=== PATIENT | male | born 1995 | race African-American/Black ===

== ENCOUNTER 2018-01-18 02:59 | Emergency (ER) | payer SELFPAY ==
[~2018-01-18] VITALS: Ht 182.9 cm; Wt 93.0 kg
[2018-01-18] MEDS ORDERED: TETRACAINE 0.5% OPHTH SOLUTION 4ML BOTTLE. ONE (03:19)
[2018-01-18] MEDS ORDERED: FLUORESCEIN 1MG EYE STRIP. OS ONE (03:45)
[2018-01-18] MEDS ORDERED: TETRACAINE 0.5% OPHTH SOLUTION 4ML BOTTLE. OS ONE (03:45)
[2018-01-18] MEDS ORDERED: PROPARACAINE 0.5% OPHTH SOLUTION 15ML BOTTLE. OS ONE (03:45)
[2018-01-18] MEDS ORDERED: ERYTHROMYCIN 0.5% OPHTH OINTMENT 1GM TUBE. OS STA (03:45)
[2018-01-18 03:50] VITALS: BP 133/60
[2018-01-18] MEDS ORDERED: ERYT1OIN6 OS (03:56)
--- NOTE | 2018-01-18 03:56 | PHYS DOC ---
Past History Past Medical History: No Pertinent History Past Surgical History: No Surgical History Alcohol Use: None Drug Use: None Adult General Chief Complaint Chief Complaint: FOREIGN BODY/EYES HPI HPI Patient is a 22 year old male who presents with complaint of possible foreign body in the left eye. The patient states that he may have gotten glass from his cell phone screen in his eye after the cell phone screen had broken. The patient thinks that he may have accidentally rubbed broken glass into his eye. Patient states that he is having 9 out of 10 pain to the eye and has noticed redness develop since earlier this evening. Patient denies any. Drainage and denies any other injuries. The patient has not used any medications or attempted to wash his eye since this started. Patient denies any loss of vision. Review of Systems Review of Systems Constitutional: Denies fever or chills [] Eyes: Redness and eye pain in left eye[] HENT: Denies nasal congestion or sore throat [] Respiratory: Denies cough or shortness of breath [] Cardiovascular: Denies chest pain or edema[] GI: Denies abdominal pain, nausea, vomiting, bloody stools or diarrhea [] : Denies dysuria or hematuria [] Musculoskeletal: Denies back pain or joint pain [] Integument: Denies rash or skin lesions [] Neurologic: Denies headache, focal weakness or sensory changes [] All other systems were reviewed and found to be within normal limits, except as documented in this note. Current Medications Current Medications Current Medications Medications (Trade) Dose Ordered Sig/Rosenda Start Time Stop Time Status Last Admin Dose Admin Fluorescein Sodium (Ful-Jenn 1mg) 1 strip 1X ONCE 01/18/18 03:30 01/18/18 03:31 UNV Proparacaine HCl (Opthetic) 1 drop 1X ONCE 01/18/18 03:30 01/18/18 03:31 UNV Tetracaine HCl (Tetracaine) 1 drop 1X ONCE 01/18/18 03:30 01/18/18 03:31 UNV Allergies Allergies Allergies Coded Allergies Type Severity Reaction Last Updated Verified No Known Drug Allergies 01/18/18 No Physical Exam Physical Exam Constitutional: Alert, afebrile, appears in moderate discomfort. [] HENT: Normocephalic, atraumatic, bilateral external ears normal, oropharynx moist, no oral exudates, nose normal. [] Eyes: PERRLA, EOMI, left scleral injection, left conjunctiva inflamed, no visualized foreign body with lid eversion, no evidence of corneal abrasion on wood's lamp examination with fluoroscein stain, slit lamp examination shows no foreign body. [] Neck: Normal range of motion, no tenderness, supple, no stridor. [] Cardiovascular:Heart rate regular rhythm, no murmur [] Lungs & Thorax: Bilateral breath sounds clear to auscultation [] Abdomen: Bowel sounds normal, soft, no tenderness, no masses, no pulsatile masses. [] Skin: Warm, dry, no erythema, no rash. [] Back: No tenderness, no CVA tenderness. [] Extremities: No tenderness, no cyanosis, no clubbing, ROM intact, no edema. [] Neurologic: Alert and oriented X 3, normal motor function, normal sensory function, no focal deficits noted. [] Current Patient Data Vital Signs Vital Signs Date Time Temp Pulse Resp B/P (MAP) Pulse Ox O2 Delivery O2 Flow Rate FiO2 01/18/18 03:00 98.1 59 14 100 Room Air Lab Results Not performed EKG EKG Not performed[] Radiology/Procedures Radiology/Procedures Not performed[] Course & Med Decision Making Course & Med Decision Making Pertinent Labs and Imaging studies reviewed. (See chart for details) Examination shows no evidence of corneal abrasion. The patient likely has episcleritis due to possible chemical irritation to the left eye. Patient was prescribed Romycin for continued treatment with recommended follow-up with Dr. Bowens of ophthalmology in the next 1-2 days. Advised return emergency department for any worsening symptoms. Patient voiced understanding and in agreement with treatment plan. Dragon Disclaimer Dragon Disclaimer This electronic medical record was generated, in whole or in part, using a voice recognition dictation system. Departure Departure: Impression: Primary Impression: Episcleritis of left eye Disposition: 01 HOME, SELF-CARE Condition: STABLE Referrals: JUSTA BOWENS DO Patient Instructions: Eye - Scleritis and Episcleritis Additional Instructions: Follow-up with Dr. Bowens in one to 2 days for reevaluation. Return to the emergency department for any worsening symptoms. Scripts Erythromycin Base (Erythromycin) 1 Gm Oint...g. 0.5 INCH OS TID for 5 Days, #1 TUBE Prov: SHEELA KUMARI MD 01/18/18 SHEELA KUMARI MD January 18, 2018 03:56
== END 2018-01-18 04:00 | disposition home or self-care (01) ==
LOC: ER 02:59
DX: H15.102 Unspecified episcleritis, left eye (principal)
CPT/HCPCS: 99284

== ENCOUNTER 2019-06-21 19:01 | Emergency (ER) | payer SELFPAY ==
[~2019-06-21] VITALS: Ht 182.9 cm; Wt 117.9 kg
[~2019-06-21 19:01] MED LIST: ERYT1OIN6 OS
[2019-06-21 19:51] LABS: BASO # 0.1 x10^3/uL (0.0-0.2); BASO % 1 % (0-3); EOS # 0.1 x10^3/uL (0.0-0.7); EOS % 1 % (0-3); HEMOGLOBIN 14.6 g/dL (13.0-17.5); LYMPH # 2.5 x10^3/uL (1.0-4.8); LYMPH % 29 % (24-48); MEAN CORPUSCULAR HEMOGLOBIN 32 pg (25-35); MEAN CORPUSCULAR HGB CONC 35 g/dL (31-37); MEAN CORPUSCULAR VOLUME 92 fL (79-100); MONO # 0.7 x10^3/uL (0.0-1.1); MONO % 9 % (0-9); NEUT # 5.1 x10^3uL (1.8-7.7); NEUT % 60 % (31-73); PLATELET COUNT 216 x10^3/uL (140-400); RED BLOOD COUNT 4.55 x10^6/uL (4.30-5.70); RED CELL DISTRIBUTION WIDTH 12.9 % (11.5-14.5); WHITE BLOOD COUNT 8.5 x10^3/uL (4.0-11.0)
[2019-06-21 19:56] LABS: BARBITURATES NEG (NEG); BENZODIAZEPINES NEG (NEG); CANNABINOIDS POS (NEG); COCAINE NEG (NEG); METHADONE NEG (NEG); OPIATES NEG (NEG); PHENCYCLIDINE NEG (NEG)
[2019-06-21 19:57] LABS: GFR 113.1; POTASSIUM 3.9 mmol/L (3.5-5.1)
[2019-06-21 20:00] LABS: AMPHETAMINE/METHAMPHETAMINE NEG (NEG)
[2019-06-21 20:01] LABS: CALCIUM 8.6 mg/dL (8.5-10.1)
--- NOTE | 2019-06-21 20:04 | RAD ---
Exam: CT head INDICATION: Altered mental status TECHNIQUE: Sequential axial images through the head were obtained without the administration of IV contrast. Comparisons: None FINDINGS: No focal parenchymal lesion or hemorrhage is identified. There is no midline shift or sulcal effacement. No acute vascular territory infarction is identified. Harmon-white distinction is preserved. The ventricular system is within normal limits without compression hydrocephalus. The basal cisterns are well maintained. The visualized portions of the paranasal sinuses and mastoid air cells are well-pneumatized. No acute fractures. IMPRESSION: No acute intracranial abnormality. Exposure: One or more of the following in the visualized dose reduction techniques were utilized for this examination: 1. Automated exposure control 2. Adjustment of the MA and/or KV according to patient size Use of iterative of reconstructive technique Electronically signed by: Leticia Gallagher MD (06/21/2019 8:01 PM) [facility]
[2019-06-21] MEDS ORDERED: IV NORMAL SALINE 1,000ML 1,000 ML IV ONE (20:45)
[2019-06-21 21:58] VITALS: BP 135/63
--- NOTE | 2019-06-21 23:35 | RAD ---
AP chest radiograph 06/21/2019 Clinical History: Congestion. An AP digital radiograph of the chest was obtained. No previous studies are available for comparison. The cardiac and mediastinal silhouettes are within normal limits in size and configuration. No acute pulmonary infiltrate is seen. No pleural effusion or pneumothorax is noted. The osseous structures are grossly intact. IMPRESSION: No acute abnormality is seen. Electronically signed by: Zoran Garcia MD (06/21/2019 11:32 PM) [facility]
--- NOTE | 2019-06-24 04:04 | EKG ---
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
--- NOTE | 2019-07-10 16:33 | ED.ADGEN ---
Past History Past Medical History: Other Past Surgical History: No Surgical History Alcohol Use: None Drug Use: None Adult General Chief Complaint Chief Complaint Chest pain/dizziness HPI HPI Patient is a 23-year-old -[place] male presents with dizziness and lightheadedness with palpitations and chest pain starting 2 hours prior to ED arrival. Patient states she was standing at time symptoms began. Denies headache, change of vision, fast or irregular heart rate. No nausea vomiting or sweats. No abdominal pain. No back pain or shortness of breath. No leg pain or swelling. No other acute symptoms or complaints. Denies alcohol and drug use[] Review of Systems Review of Systems Review symptoms as per history of present illness. All other review symptoms are negative. All other systems were reviewed and found to be within normal limits, except as documented in this note. Current Medications Current Medications Current Medications Medications (Trade) Dose Ordered Sig/Rosenda Start Time Stop Time Status Last Admin Dose Admin Sodium Chloride 1,000 ml @ 1,000 mls/hr 1X ONCE 06/21/19 20:45 06/21/19 21:44 DC 06/21/19 20:45 1,000 MLS/HR Allergies Allergies Allergies Coded Allergies Type Severity Reaction Last Updated Verified No Known Drug Allergies 01/18/18 No Physical Exam Physical Exam Constitutional: Well developed, well nourished, no acute distress, non-toxic ap pearance. [] HENT: Normocephalic, atraumatic, bilateral external ears normal, oropharynx moist, no oral exudates, nose normal. [] Eyes: PERRLA, EOMI, conjunctiva injected.[] Neck: Normal range of motion, no tenderness, supple, no stridor. [] Cardiovascular:Heart rate regular rhythm, no murmur [] Lungs & Thorax: Bilateral breath sounds clear to auscultation [] Abdomen: Bowel sounds normal, soft, no tenderness, no masses, no pulsatile masses. [] Skin: Warm, dry, no erythema, no rash. [] Back: No tenderness, no CVA tenderness. [] Extremities: No tenderness, no cyanosis, no clubbing, ROM intact, no edema. [] Neurologic: Alert and oriented X 3, normal motor function, normal sensory function, no focal deficits noted. [] Psychologic: Affect normal, judgement normal, mood normal. [] Current Patient Data Vital Signs Vital Signs Date Time Temp Pulse Resp B/P (MAP) Pulse Ox O2 Delivery O2 Flow Rate FiO2 06/21/19 21:58 77 16 135/63 (87) 97 Room Air 06/21/19 19:45 98.1 Lab Results Laboratory Tests Test 06/21/19 19:15 06/21/19 19:21 06/21/19 19:25 Urine Opiates Screen Neg (NEG) Urine Methadone Screen Neg (NEG) Urine Barbiturates Neg (NEG) Urine Phencyclidine Screen Neg (NEG) Urine Amphetamine/Methamphetamine Neg (NEG) Urine Benzodiazepines Screen Neg (NEG) Urine Cocaine Screen Neg (NEG) Urine Cannabinoids Screen Pos (NEG) Urine Ethyl Alcohol Neg (NEG) Glucose (Fingerstick) 124 mg/dL (70-99) H White Blood Count 8.5 x10^3/uL (4.0-11.0) Red Blood Count 4.55 x10^6/uL (4.30-5.70) Hemoglobin 14.6 g/dL (13.0-17.5) Hematocrit 42.0 % (39.0-53.0) Mean Corpuscular Volume 92 fL (79-100) Mean Corpuscular Hemoglobin 32 pg (25-35) Mean Corpuscular Hemoglobin Concent 35 g/dL (31-37) Red Cell Distribution Width 12.9 % (11.5-14.5) Platelet Count 216 x10^3/uL (140-400) Neutrophils (%) (Auto) 60 % (31-73) Lymphocytes (%) (Auto) 29 % (24-48) Monocytes (%) (Auto) 9 % (0-9) Eosinophils (%) (Auto) 1 % (0-3) Basophils (%) (Auto) 1 % (0-3) Neutrophils # (Auto) 5.1 x10^3uL (1.8-7.7) Lymphocytes # (Auto) 2.5 x10^3/uL (1.0-4.8) Monocytes # (Auto) 0.7 x10^3/uL (0.0-1.1) Eosinophils # (Auto) 0.1 x10^3/uL (0.0-0.7) Basophils # (Auto) 0.1 x10^3/uL (0.0-0.2) Sodium Level 140 mmol/L (136-145) Potassium Level 3.9 mmol/L (3.5-5.1) Chloride Level 106 mmol/L (98-107) Carbon Dioxide Level 27 mmol/L (21-32) Anion Gap 7 (6-14) Blood Urea Nitrogen 17 mg/dL (8-26) Creatinine 1.0 mg/dL (0.7-1.3) Estimated GFR (Cockcroft-Gault) 113.1 Glucose Level 128 mg/dL (70-99) H Calcium Level 8.6 mg/dL (8.5-10.1) Prolactin 7.7 ng/mL (4.0-15.2) EKG EKG [EKG: Reviewed] Radiology/Procedures Radiology/Procedures [] Course & Med Decision Making Course & Med Decision Making Pertinent Labs and Imaging studies reviewed. (See chart for details) [Symptoms resolved in the ED. Lab, EKG reviewed. Suspect symptoms related to marijuana use. Recommendations are for future drug avoidance and PCP follow-up.] Final Impression Final Impression [#1 Dizziness #2 THC use] Nicole Disclaimer Dragon Disclaimer This electronic medical record was generated, in whole or in part, using a voice recognition dictation system. TIFFANY RAY DO Jul 10, 2019 16:33
== END 2019-06-21 21:58 | disposition home or self-care (01) ==
LOC: ER 19:01
DX: R42 Dizziness and giddiness (principal); F12.90 Cannabis use, unspecified, uncomplicated
CPT/HCPCS: 36415; 70450; 71045; 80048; 80307; 82947; 84146; 85025; 93005; 96360; 99285-25; J7030

== ENCOUNTER 2019-10-01 09:18 | Emergency (ER) | payer SELFPAY ==
[~2019-10-01] VITALS: Ht 182.9 cm; Wt 125.0 kg
[2019-10-01] MEDS ORDERED: LIDOCAINE 1%/EPI 1:100,000 20 ML VIAL. ONE (09:32)
--- NOTE | 2019-10-01 09:37 | PHYS DOC ---
Past History Past Medical History: Other Additional Past Medical Histor: PTSD Past Surgical History: No Surgical History Alcohol Use: None Drug Use: None Adult General Chief Complaint Chief Complaint: LACERATION/AVULSION HPI HPI Patient is a 23-year-old male presents to the emergency department for evaluation. This morning he awakened to use the restroom and , while walking barefoot, accidentally stepped on the corner of a ventilation tense on his bathroom floor, and sustained a laceration on the plantar surface of his left foot. Palpation of the affected area is painful, he denies a sensation of foreign body. He is uncertain of his last tetanus. He denies any other injuries, numbness, or weakness. Review of Systems Review of Systems Constitutional: Denies fever or chills [] Integument: Denies rash or skin lesions [] Neurologic: Denies focal weakness or sensory changes [] Allergies Allergies Allergies Coded Allergies Type Severity Reaction Last Updated Verified No Known Drug Allergies 01/18/18 No Physical Exam Physical Exam PHYSICAL EXAM: HEENT: Atruamatic NECK: Supple, normal ROM, non-tender. CARDIAC: Regular Rate and Rhythm LUNGS: Clear Bilaterally EXTREMITIES: There is a V-shaped 4 cm laceration on the plantar surface of the left foot, laterally, and on the distal aspect of the plantar surface of the foot. There is no foreign body, or significant surrounding warmth or erythema. EKG EKG [] Radiology/Procedures Radiology/Procedures [] Course & Med Decision Making Course & Med Decision Making LACERATION REPAIR PROCEDURE NOTE: The 4 centimeter laceration was irrigated copiously with normal saline, anesthetized with 1% lidocaine with epinephrine, prepped with Betadine, and draped with sterile drapes. Sterile technique was used. The wound was closed with # 6 running interlocking 4-0 nylon sutures. Good epithelial approximation was obtained. The patient tolerated the procedure well. Discussed wound care with the patient, the need for follow-up, and return precautions. Dragon Disclaimer Dragon Disclaimer This electronic medical record was generated, in whole or in part, using a voice recognition dictation system. Departure Departure: Impression: Primary Impression: Foot laceration Disposition: HOME, SELF-CARE Condition: STABLE Patient Instructions: Laceration Care, Adult Additional Instructions: Keep wound clean and dry. Sutures should be removed in 7-10 days. Please contact your primary care provider or return to the emergency department for suture removal. Apply topical anabiotic ointment and a fresh sterile dressing at least once daily, and if wound becomes dirty or wet. JENNIFER HERNANDEZ MD Oct 01, 2019 09:37
[2019-10-01] MEDS ORDERED: DIPHTH,PERTUSS(ACELL),TET TOX 0.5 ML DISP.SYRIN. VAX IM ONE (10:00)
[2019-10-01] MEDS ORDERED: NEOMY/BACITR/POLYMYXIN OINT PACKET. TP ONE (10:01)
[2019-10-01] MEDS ORDERED: BACITRACIN ZINC TOPICAL OINT PACKET. TP ONE (10:15)
== END 2019-10-01 10:07 | disposition home or self-care (01) ==
LOC: ER 09:18
DX: S91.312A Laceration without foreign body, left foot, initial encounter (principal); F43.10 Post-traumatic stress disorder, unspecified; W01.0XXA Fall on same level from slipping, tripping and stumbling without subsequent striking against object, initial encounter; Y93.89 Activity, other specified; Y92.002 Bathroom of unspecified non-institutional (private) residence as the place of occurrence of the external cause; Y99.8 Other external cause status
CPT/HCPCS: 12002; 90471; 90715; 99283

== ENCOUNTER 2019-10-11 10:54 | Emergency (ER) | payer SELFPAY ==
[~2019-10-11] VITALS: Ht 182.9 cm; Wt 125.0 kg
[2019-10-11 11:04] VITALS: BP 129/65
--- NOTE | 2019-10-11 12:02 | PHYS DOC ---
Past History Past Medical History: Other Additional Past Medical Histor: PTSD Past Surgical History: No Surgical History Alcohol Use: None Drug Use: None Adult General Chief Complaint Chief Complaint: SUTURE/STAPLE REMOVAL HPI HPI Patient is a 21-year-old male with suture removal. No issues Allergies Allergies Allergies Coded Allergies Type Severity Reaction Last Updated Verified No Known Drug Allergies 01/18/18 No Physical Exam Physical Exam Constitutional: Well developed, well nourished, no acute distress, non-toxic appearance. [] Skin: Warm, dry, no erythema, no rash. [] Well-healed 3 cm laceration sutures in place at the base of the bottom of the l affected foot. I did take these sutures out myself there was good skin approximation no signs of infection patient tolerated well. Neurologic: Alert and oriented X 3, Psychologic: Affect normal, judgement normal, mood normal. [] Current Patient Data Vital Signs Vital Signs Date Time Temp Pulse Resp B/P (MAP) Pulse Ox O2 Delivery O2 Flow Rate FiO2 10/11/19 11:04 98.1 85 16 129/65 (86) 96 Room Air EKG EKG [] Radiology/Procedures Radiology/Procedures [] Course & Med Decision Making Course & Med Decision Making Pertinent Labs and Imaging studies reviewed. (See chart for details) [] Dragon Disclaimer Dragon Disclaimer This electronic medical record was generated, in whole or in part, using a voice recognition dictation system. Departure Departure: Impression: Primary Impression: Visit for suture removal Disposition: HOME, SELF-CARE Condition: STABLE Patient Instructions: Suture Removal-Brief MARIANELA MARES MD Oct 11, 2019 12:02
== END 2019-10-11 11:18 | disposition home or self-care (01) ==
LOC: ER 10:54
DX: S91.312D Laceration without foreign body, left foot, subsequent encounter (principal); X58.XXXD Exposure to other specified factors, subsequent encounter
CPT/HCPCS: 99281

== ENCOUNTER 2020-01-21 21:36 | Emergency (ER) | payer SELFPAY ==
[~2020-01-21] VITALS: Ht 182.9 cm; Wt 125.0 kg
--- NOTE | 2020-01-21 21:42 | PHYS DOC ---
Past History Past Medical History: Other Additional Past Medical Histor: PTSD Past Surgical History: No Surgical History Alcohol Use: None Drug Use: None General Adult HPI: HPI: "...I got ALL the symptoms of COVID.. ". " It is all over ." " I got the cough..." ..".. My nose is running all the time.. the last coupled days..." Patient is a 24 year old MALE inmate from [facility] who presents with above hx and complaints of COVID.. Pt. complaints of non-cough, congestion, rhinorrhea, fever, malaise, arthralgia, myalgia and malaise. Patient did not get flu vaccination this season. No recent travel. No specific ill contacts. Did have travel to [place] in July. Patient does smoke. Has used marijuana in the past. Patient denies any history of chronic medical issues. Up-to-date with vaccinations since high school. No history immunosuppression. No history of IV drug use. No history of coagulopathy of him or family members. Review of Systems: Review of Systems: Constitutional: Subjective complaints of fever or chills Eyes: Denies change in visual acuity HENT: Complains of nasal congestion, rhinorrhea and sore throat Respiratory: Complains of a nonproductive cough Cardiovascular: Denies chest pain or edema GI: Denies abdominal pain, nausea, vomiting, bloody stools or diarrhea : Denies dysuria Musculoskeletal: Denies back pain or joint pain Integument: Denies rash Neurologic: Denies headache, focal weakness or sensory changes Endocrine: Denies polyuria or polydipsia Lymphatic: Denies swollen glands Psychiatric: Denies depression or anxiety Heart Score: HEART Score for Chest Pain: HEART Score for Chest Pain Response (Comments) Value History Slighlty/Non-Suspicious 0 ECG Normal 0 Age < 45 0 Risk Factors No Risk Factors 0 Troponin < Normal Limit 0 Total 0 Risk Factors: Risk Factors: DM, Current or recent (<one month) smoker, HTN, HLP, family history of CAD, obesity. Risk Scores: Score 0 - 3: 2.5% MACE over next 6 weeks - Discharge Home Score 4 - 6: 20.3% MACE over next 6 weeks - Admit for Clinical Observation Score 7 - 10: 72.7% MACE over next 6 weeks - Early Invasive Strategies Family History: Family History: Noncontributory to presentation Current Medications: Current Meds: See nursing for home meds Allergies: Allergies: Allergies Coded Allergies Type Severity Reaction Last Updated Verified No Known Drug Allergies 01/18/18 No Physical Exam: PE: Constitutional: Well developed, well nourished, no acute distress, non-toxic appearance. [] HENT: Normocephalic, atraumatic, bilateral external ears normal, oropharynx moist, mild injection of pharynx, postnasal drainage, no oral exudates, nose swollen turbinates and clear rhinorrhea Eyes: PERRLA, EOMI, conjunctiva normal, no discharge. [] Neck: Normal range of motion, no tenderness, supple, no stridor. [] Cardiovascular:Heart rate regular rhythm, no murmur [] Lungs & Thorax: Bilateral breath sounds equal at apex with few scattered wheezes on auscultation [] Abdomen: Bowel sounds normal, soft, no tenderness, no masses, no pulsatile masses. [Obese.] Skin: Warm, dry, no erythema, no rash. [] Back: No tenderness, no CVA tenderness. [] Extremities: No tenderness, no cyanosis, no clubbing, ROM intact, no edema. [] No cording appreciated in the legs. Neurologic: Alert and oriented X 3, normal motor function, normal sensory function, no focal deficits noted. [] Psychologic: Affect normal, judgement normal, mood normal. [] EKG: EKG: My interpretation of the EKG shows a sinus rhythm at 65 bpm. No acute morph ology. [] Radiology/Procedures: Radiology/Procedures: [][address] [address] IMAGING REPORT Signed PATIENT: REYNA MISHRA SACCOUNT: [id number] : 1995 LOCATION: ER AGE: 24 SEX: M EXAM STATUS: REG ER ORD. PHYSICIAN: BORIS CRUZ MD REASON: cough PROCEDURE: PORTABLE CHEST 1V EXAM: Chest, single view. HISTORY: Cough. COMPARISON: 06/21/2019 FINDINGS: A frontal view of the chest is obtained. There is mild central interstitial opacity which is not clearly within limits to suggest small airways disease or viral pneumonia. There is no consolidation, pleural effusion or pneumothorax. The heart is normal in size. IMPRESSION: No convincing acute pulmonary finding. Electronically signed by: Solange Wolf MD (01/21/2020 10:39 PM) [facility] DICTATED AND SIGNED BY: SOLANGE WOLF MD DATE: 01/21/20 2239 CC: BORIS CRUZ MD; SOLANGE RAINEY MD ~ Course & Med Decision Making: Course & Med Decision Making Pertinent Labs and Imaging studies reviewed. (See chart for details) Patient follow-up primary care. Patient use MDI 2 puffs 4 times a day. Patient to stop smoking. Patient stop vaping. Patient push fluids. Patient to wear a mask anytime he is in contact with other individuals mask should cover his nose and mouth. Patient should self isolate for the next 14 days. Patient follow- up pending labs. Patient review ED work-up with his primary care. Impression: 1. Viral syndrome 2. Elevated CK 733 3. Elevated AST 46 and ALT 90 4. Tobacco, vaping and marijuana use [] Dragon Disclaimer: Dragon Disclaimer: This electronic medical record was generated, in whole or in part, using a voice recognition dictation system. Departure Departure: Disposition: 01 HOME/RESIDENCE PRIOR TO ADM Condition: STABLE Referrals: SOLANGE RAINEY MD (PCP) Dragon Disclaimer This chart was dictated in whole or in part using Voice Recognition software in a busy, high-work load, and often noisy Emergency Department environment. It may contain unintended and wholly unrecognized errors or omissions. Dragon Disclaimer This chart was dictated in whole or in part using Voice Recognition software in a busy, high-work load, and often noisy Emergency Department environment. It may contain unintended and wholly unrecognized errors or omissions. BORIS CRUZ MD January 21, 2020 21:42
[2020-01-21] MEDS ORDERED: IV RINGERS SOLUTION,LACTATED 1,000 ML IV SCH (22:00)
--- NOTE | 2020-01-21 22:02 | EKG ---
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
[2020-01-21] MEDS ORDERED: ALBUTEROL SULFATE 8GM INHALER. INH ONE (22:30)
[2020-01-21 22:38] LABS: BGAS PH 7.38 (7.35-7.46)
--- NOTE | 2020-01-21 22:42 | RAD ---
EXAM: Chest, single view. HISTORY: Cough. COMPARISON: 06/21/2019 FINDINGS: A frontal view of the chest is obtained. There is mild central interstitial opacity which is not clearly within limits to suggest small airways disease or viral pneumonia. There is no consolidation, pleural effusion or pneumothorax. The heart is normal in size. IMPRESSION: No convincing acute pulmonary finding. Electronically signed by: Solange Escobedo MD (01/21/2020 10:39 PM) [facility]
[2020-01-21 23:06] LABS: BASO % 0 % (0-3); EOS # 0.1 x10^3/uL (0.0-0.7); EOS % 1 % (0-3); HEMOGLOBIN 14.4 g/dL (13.0-17.5); LYMPH # 2.6 x10^3/uL (1.0-4.8); LYMPH % 42 % (24-48); MEAN CORPUSCULAR HEMOGLOBIN 31 pg (25-35); MEAN CORPUSCULAR HGB CONC 33 g/dL (31-37); MEAN CORPUSCULAR VOLUME 93 fL (79-100); MONO # 0.8 x10^3/uL (0.0-1.1); MONO % 13 % (0-9); NEUT # 2.8 x10^3uL (1.8-7.7); NEUT % 44 % (31-73); PLATELET COUNT 215 x10^3/uL (140-400); RED BLOOD COUNT 4.61 x10^6/uL (4.30-5.70); RED CELL DISTRIBUTION WIDTH 13.3 % (11.5-14.5); WHITE BLOOD COUNT 6.4 x10^3/uL (4.0-11.0)
[2020-01-21] MEDS ORDERED: IBUPROFEN 600 MG TABLET. PO ONE (23:15)
[2020-01-21 23:25] LABS: POTASSIUM 3.7 mmol/L (3.5-5.1)
[2020-01-21 23:32] LABS: INFLUENZA A PATIENT NEGATIVE (NEGATIVE); INFLUENZA B PATIENT NEGATIVE (NEGATIVE)
[2020-01-21 23:39] LABS: DIRECT BILIRUBIN 0.1 mg/dL (0.0-0.2); MAGNESIUM 2.1 mg/dL (1.8-2.4); TOTAL BILIRUBIN 0.3 mg/dL (0.2-1.0); TOTAL PROTEIN 7.5 g/dL (6.4-8.2)
[2020-01-22 00:13] LABS: BARBITURATES NEG (NEG); BENZODIAZEPINES NEG (NEG); CANNABINOIDS POS (NEG); COCAINE NEG (NEG); METHADONE NEG (NEG); OPIATES NEG (NEG); PHENCYCLIDINE NEG (NEG)
[2020-01-22 00:14] LABS: AMPHETAMINE/METHAMPHETAMINE NEG (NEG)
[2020-01-22 00:19] LABS: BACTERIA,URINE 0 /HPF (0-FEW); BILIRUBIN,URINE NEG (NEG); CLARITY,URINE CLEAR; COLOR,URINE YELLOW; GLUCOSE,URINE NEG (NEG); NITRITE,URINE NEG (NEG); RBC,URINE 0 /HPF (0-2); SQUAMOUS EPITHELIAL CELL,UR OCC /LPF; UROBILINOGEN,URINE 0.2 mg/dL (0.2 mg/dL); WBC,URINE OCC /HPF (0-4)
[2020-01-22 01:30] VITALS: BP 137/76
== END 2020-01-22 01:35 | disposition home or self-care (01) ==
LOC: ER 21:36
DX: B34.9 Viral infection, unspecified (principal); R79.89 Other specified abnormal findings of blood chemistry; R74.8 Abnormal levels of other serum enzymes; F12.90 Cannabis use, unspecified, uncomplicated; Z72.0 Tobacco use
CPT/HCPCS: 36415; 71045; 80048; 80076; 80307; 81001; 82550; 82803; 83690; 83735; 83880; 84443; 84484; 85025; 85379; 85610; 85730; 86705; 86709; 86803; 87070; 87340; 87804; 87880; 93005; 94640; 99285; J7120; J7613; 94664

== ENCOUNTER 2020-02-02 09:30 | Emergency (ER) | payer SELFPAY ==
[~2020-02-02] VITALS: Ht 182.9 cm; Wt 125.0 kg
[2020-02-02 09:31] VITALS: BP 137/76
[2020-02-02] MEDS ORDERED: AZIT250T PO (09:56)
--- NOTE | 2020-02-02 09:56 | PHYS DOC ---
Past History Past Medical History: Other Additional Past Medical Histor: PTSD Past Surgical History: No Surgical History Alcohol Use: None Drug Use: None General Adult EDM: Chief Complaint: SORE THROAT HPI: HPI: Patient is a 24-year-old male who presents with complaint of sore throat and painful breathing due to his throat and so sore. Patient is not aware of any fever. He denies any chest pain or shortness of breath. [] Review of Systems: Review of Systems: Constitutional: Denies fever or chills HENT: Complains of sore throat Respiratory: Denies cough or shortness of breath Cardiovascular: Denies chest pain or edema Integument: Denies rash Neurologic: Denies headache, focal weakness or sensory changes Heart Score: Risk Factors: Risk Factors: DM, Current or recent (<one month) smoker, HTN, HLP, family history of CAD, obesity. Risk Scores: Score 0 - 3: 2.5% MACE over next 6 weeks - Discharge Home Score 4 - 6: 20.3% MACE over next 6 weeks - Admit for Clinical Observation Score 7 - 10: 72.7% MACE over next 6 weeks - Early Invasive Strategies Allergies: Allergies: Allergies Coded Allergies Type Severity Reaction Last Updated Verified No Known Drug Allergies 01/18/18 No Physical Exam: PE: Constitutional: Well developed, well nourished, no acute distress, non-toxic appearance. [] HENT: Normocephalic, atraumatic, bilateral external ears normal, pharyngeal erythema without exudates is noted. [] Eyes: PERRLA, EOMI, conjunctiva normal, no discharge. [] Neck: Normal range of motion, no tenderness, supple. [] Cardiovascular: Regular rate and rhythm [] Lungs & Thorax: Bilateral breath sounds clear to auscultation [] Abdomen: Bowel sounds normal, soft, no tenderness. [] Skin: Warm, dry, no erythema, no rash. [] Extremities: No tenderness, no cyanosis, no clubbing, ROM intact. [] Neurologic: Alert and oriented X 3, no focal deficits noted. [] EKG: EKG: [] Radiology/Procedures: Radiology/Procedures: [] Course & Med Decision Making: Course & Med Decision Making Pertinent Labs and Imaging studies reviewed. (See chart for details) [] Dragon Disclaimer: Dragon Disclaimer: This electronic medical record was generated, in whole or in part, using a voice recognition dictation system. Departure Departure: Impression: Primary Impression: Pharyngitis Qualified Codes: J02.9 - Acute pharyngitis, unspecified Disposition: HOME/RESIDENCE PRIOR TO ADM Condition: STABLE Referrals: JEFFERY RAINEY MD (PCP) Patient Instructions: Viral and Bacterial Pharyngitis Scripts Azithromycin (ZITHROMAX) 250 Mg Tablet 1 PKG PO UD for infection, #6 TAB Prov: CHANTAL BREAUX Jr. DO 02/02/20 CHANTAL BREAUX Jr. DO Feb 02, 2020 09:56
== END 2020-02-02 10:10 | disposition home or self-care (01) ==
LOC: ER 09:30
DX: J02.9 Acute pharyngitis, unspecified (principal)
CPT/HCPCS: 99283

== ENCOUNTER 2020-04-03 21:57 | Emergency (ER) | payer SELFPAY ==
[~2020-04-03] VITALS: Ht 182.9 cm; Wt 104.5 kg
[2020-04-03 21:57] VITALS: BP 160/76
[~2020-04-03 21:57] MED LIST changes: +AZIT250T PO
--- NOTE | 2020-04-03 22:16 | PHYS DOC ---
Past History Past Medical History: No Pertinent History, Other Additional Past Medical Histor: PTSD Past Medical History Hx.Traumatic Head Injury 2020 Past Surgical History: No Surgical History Alcohol Use: None Drug Use: None General Adult EDM: Chief Complaint: LOWEREXTREMITY INJURY HPI: HPI: " I stepped on a heating/ cooling floor vent.. and cut my Lt. foot...." Patient is a 24 year old male who presents with laceration to plantar of Lt. foot. Patient has a one by one 1 cm [id number] . avulsed laceration to ball of left foot. Skin is avascular. Patient does not remember his last tetanus. Patient currently on work leave due to head injury. Patient denies any history of immunosuppression. No recent travel. No specific ill contacts. Review of Systems: Review of Systems: Constitutional: Denies fever or chills Eyes: Denies change in visual acuity HENT: Denies nasal congestion or sore throat Respiratory: Denies cough or shortness of breath Cardiovascular: Denies chest pain or edema GI: Denies abdominal pain, nausea, vomiting, bloody stools or diarrhea : Denies dysuria Musculoskeletal: Denies back pain or joint pain Integument: Denies rash. Complains of laceration left foot Neurologic: Denies headache, focal weakness or sensory changes Endocrine: Denies polyuria or polydipsia Lymphatic: Denies swollen glands Psychiatric: Denies depression or anxiety Heart Score: Risk Factors: Risk Factors: DM, Current or recent (<one month) smoker, HTN, HLP, family history of CAD, obesity. Risk Scores: Score 0 - 3: 2.5% MACE over next 6 weeks - Discharge Home Score 4 - 6: 20.3% MACE over next 6 weeks - Admit for Clinical Observation Score 7 - 10: 72.7% MACE over next 6 weeks - Early Invasive Strategies Family History: Family History: Noncontributory to presentation Current Medications: Current Meds: See nursing for home meds Allergies: Allergies: Allergies Coded Allergies Type Severity Reaction Last Updated Verified No Known Drug Allergies 04/03/20 No Physical Exam: PE: Constitutional: Moderate acute distress, non-toxic appearance. [] HENT: Normocephalic, atraumatic, bilateral external ears normal, oropharynx moist, no oral exudates, nose normal. [] Eyes: PERRLA, EOMI, conjunctiva normal, no discharge. [] Neck: Normal range of motion, no tenderness, supple, no stridor. [] Cardiovascular:Heart rate regular rhythm, no murmur [] Lungs & Thorax: Bilateral breath sounds equal at apex on auscultation [] Abdomen: Bowel sounds normal, soft, no tenderness, no masses, no pulsatile masses. Obese Skin: Warm, dry, no erythema, no rash. [] Laceration left foot as per HPI Back: No tenderness, no CVA tenderness. [] Extremities: No tenderness, no cyanosis, no clubbing, ROM intact, no edema. [] Neurologic: Alert and oriented X 3, normal motor function, normal sensory function, no focal deficits noted. [] Psychologic: Affect anxious, judgement normal, mood normal. [] EKG: EKG: [] Radiology/Procedures: Radiology/Procedures: [] Course & Med Decision Making: Course & Med Decision Making Pertinent Labs and Imaging studies reviewed. (See chart for details) Procedure note-laceration cleaned with Betadine and scrubbed with 4 x 4. Irrigated laceration normal saline. Skin of the laceration is avascular. Trimmed with a sharp scissors. Scraped debris out of embedded laceration. Dressing of back to tracing and gauze placed. Patient keep clean and dry. Apply Polysporin 4 times a day. Monitor for infection. Take Tylenol and ibup rofen for pain. Wear only white socks until the laceration is healed. Keep laceration, clean and dry. Impression: 1. 1cm x 1 cm x1 cm avulsion laceration sole of left foot [] Dragon Disclaimer: Nicole Disclaimer: This electronic medical record was generated, in whole or in part, using a voice recognition dictation system. Departure Departure: Disposition: 01 HOME/RESIDENCE PRIOR TO ADM Condition: STABLE Referrals: LILLI BLELA DO (PCP) Justification of Admission: Justification of Admission: Justification of Admission Dx: N/A Dragon Disclaimer This chart was dictated in whole or in part using Voice Recognition software in a busy, high-work load, and often noisy Emergency Department environment. It may contain unintended and wholly unrecognized errors or omissions. BORIS CRUZ MD Apr 03, 2020 22:15
[2020-04-03] MEDS ORDERED: DIPH,PERTUSS(ACELL),TET VAC/PF 0.5 ML SYRINGE. VAX IM ONE (22:30)
[2020-04-03] MEDS ORDERED: ACETAMINOPHEN 500 MG TABLET PO ONE (22:30)
== END 2020-04-03 22:50 | disposition home or self-care (01) ==
LOC: ER 21:57
DX: S91.312A Laceration without foreign body, left foot, initial encounter (principal); F43.10 Post-traumatic stress disorder, unspecified; Z87.820 Personal history of traumatic brain injury; W22.8XXA Striking against or struck by other objects, initial encounter; Y93.89 Activity, other specified; Y92.89 Other specified places as the place of occurrence of the external cause; Y99.8 Other external cause status
CPT/HCPCS: 90471; 90715; 99283-25

== ENCOUNTER 2020-09-12 10:00 | Emergency (ER) | payer MEDICAID ==
[~2020-09-12] VITALS: Ht 182.9 cm; Wt 104.5 kg
[2020-09-12] MEDS ORDERED: ONDANSETRON PF 4 MG/2 ML VIAL. IVP ONE (10:15)
[2020-09-12] MEDS ORDERED: IV NORMAL SALINE 1,000ML 1,000 ML IV ONE ×2 (10:15)
[2020-09-12] MEDS ORDERED: FAMOTIDINE 20 MG/2 ML VIAL IVP ONE (10:15)
[2020-09-12] MEDS ORDERED: IOHEXOL 300 MG/ML 75 ML VIAL. IV ONE (10:15)
--- NOTE | 2020-09-12 10:15 | PHYS DOC ---
Past History Past Medical History: No Pertinent History Additional Past Medical Histor: PTSD Past Surgical History: No Surgical History Alcohol Use: None Drug Use: None General Adult EDM: Chief Complaint: NAUSEA/VOMITING/DIARRHEA HPI: HPI: 24-year-old male presents emergency department today with nausea vomiting chest pain and blood in his vomitus. This all started yesterday after suspicious food intake. He started having epigastric abdominal pain that is a throbbing aching moderate pain that is nonradiating. It is associated with multiple episodes of vomiting and nausea. He reports ground coffee appearing emesis and blood in his stools. He also reports chest pain that is a pressure that is mild to moderate nonradiating without alleviating factors. Also last night the patient reports passing out while he was vomiting. He is unsure whether he hit his head. He denies having a headache. He denies slurred speech or focal neurologic deficits. He called the ambulance who brought him in for further evaluation. He denies any other medical history. Review of systems is positive for syncope abdominal pain chest pain and blood in vomit. Negative for fevers chills nuchal rigidity. All other review of systems negative. ED course: 24-year-old male presenting with abdominal pain chest pain vomiting and blood in stools. Here the patient was well-appearing with a soft nontender abdomen. Blood tests are unremarkable. Patient has not been vomiting in the emergency department. He received IV fluids. CT abdomen pelvis unremarkable. EKG unremarkable GINO. Troponin within normal limits. On reevaluation the patient is feeling much better. He does not have any pain. He is resting comfortably without any distress. Abdomen is soft and nontender. We will discharge him with Zofran and Pepcid to follow-up with his doctor in 1 to 2 days. He is to return if his pain returns if he has recurrent vomiting or if he is concerned for any reason. Current Medications: Current Meds: Current Medications Medications (Trade) Dose Ordered Sig/[facility] Start Time Stop Time Status Last Admin Dose Admin Famotidine (Pepcid Vial) 10 mg 1X ONCE 09/12/20 10:15 09/12/20 10:16 Ondansetron HCl (Zofran) 4 mg 1X ONCE 09/12/20 10:15 09/12/20 10:16 Sodium Chloride 1,000 ml @ 1,000 mls/hr 1X ONCE 09/12/20 10:15 09/12/20 11:14 Allergies: Allergies: Allergies Coded Allergies Type Severity Reaction Last Updated Verified No Known Drug Allergies 04/03/20 No Physical Exam: PE: Constitutional: Well developed, well nourished, no acute distress, non-toxic appearance. [] HENT: Normocephalic, atraumatic, bilateral external ears normal, oropharynx moist, no oral exudates, nose normal. [] Eyes: PERRLA, EOMI, conjunctiva normal, no discharge. [] Neck: Normal range of motion, no tenderness, supple, no stridor. [] Cardiovascular:Heart rate regular rhythm, no murmur [] Lungs & Thorax: Bilateral breath sounds clear to auscultation [] Abdomen: Bowel sounds normal, soft, no tenderness, no masses, no pulsatile masses. [] No rebound tenderness or guarding. Negative McBurney's point. Negative Poon sign. Skin: Warm, dry, no erythema, no rash. [] Back: No tenderness, no CVA tenderness. [] Extremities: No tenderness, no cyanosis, no clubbing, ROM intact, no edema. [] Palpable pulse in his extremities. Neurologic: Mental status: Awake oriented and alert x3 Cranial nerves: Extraocular movements intact, eyebrows kesha bilaterally, smile symmetric, uvula elevation nl, shoulder shrug intact bilaterally, tongue protrusion normal Sensation: equal and normal in all extremities Strength: 5/5 in upper and lower extremities bilaterally Psychologic: Affect normal, judgement normal, mood normal. [] Current Patient Data: Vital Signs: Vital Signs Date Time Temp Pulse Resp B/P (MAP) Pulse Ox O2 Delivery O2 Flow Rate FiO2 09/12/20 10:02 97.8 90 16 143/85 (104) 98 Room Air EKG: EKG: [] Radiology/Procedures: Radiology/Procedures: [] Heart Score: Risk Factors: Risk Factors: DM, Current or recent (<one month) smoker, HTN, HLP, family history of CAD, obesity. Risk Scores: Score 0 - 3: 2.5% MACE over next 6 weeks - Discharge Home Score 4 - 6: 20.3% MACE over next 6 weeks - Admit for Clinical Observation Score 7 - 10: 72.7% MACE over next 6 weeks - Early Invasive Strategies Course & Med Decision Making: Course & Med Decision Making Pertinent Labs and Imaging studies reviewed. (See chart for details) [] Dragon Disclaimer: Dragon Disclaimer: This electronic medical record was generated, in whole or in part, using a voice recognition dictation system. Departure Departure: Impression: Primary Impression: Nausea & vomiting Additional Impression: Abdominal pain Disposition: 01 DC HOME SELF CARE/HOMELESS Condition: STABLE Referrals: LILLI BELLA DO (PCP) Patient Instructions: Abdominal Pain Scripts Ondansetron Hcl (ZOFRAN) 4 Mg Tablet 1 TAB PO PRN Q6HRS PRN for NAUSEA, #6 TAB Prov: ALISON MONSON MD 09/12/20 Famotidine (PEPCID) 20 Mg Tablet 1 TAB PO BID PRN for ABDOMINAL CRAMPS, #10 TAB 0 Refills Prov: ALISON MONSON MD 09/12/20 ALISON MONSON MD Sep 12, 2020 10:15
[2020-09-12] MEDS ORDERED: CONTRAST GIVEN. MC PRN (10:30)
[2020-09-12 10:34] LABS: BASO % 0 % (0-3); EOS % 0 % (0-3); HEMATOCRIT 46.6 % (39.0-53.0); HEMOGLOBIN 15.7 g/dL (13.0-17.5); LYMPH # 0.8 x10^3/uL (1.0-4.8); LYMPH % 8 % (24-48); MEAN CORPUSCULAR HEMOGLOBIN 31 pg (25-35); MEAN CORPUSCULAR HGB CONC 34 g/dL (31-37); MEAN CORPUSCULAR VOLUME 92 fL (79-100); MONO # 0.7 x10^3/uL (0.0-1.1); MONO % 7 % (0-9); NEUT % 84 % (31-73); PLATELET COUNT 228 x10^3/uL (140-400); RED BLOOD COUNT 5.09 x10^6/uL (4.30-5.70); RED CELL DISTRIBUTION WIDTH 12.8 % (11.5-14.5); WHITE BLOOD COUNT 9.5 x10^3/uL (4.0-11.0)
[2020-09-12 10:39] LABS: ANION GAP 6 (6-14); BLOOD UREA NITROGEN 13 mg/dL (8-26); BUN/CREATININE RATIO 13 (6-20); CALCIUM 9.5 mg/dL (8.5-10.1); CARBON DIOXIDE 30 mmol/L (21-32); CHLORIDE 104 mmol/L (98-107); GLUCOSE 130 mg/dL (70-99); POTASSIUM 4.1 mmol/L (3.5-5.1); SODIUM 140 mmol/L (136-145)
[2020-09-12 11:00] LABS: ALBUMIN 4.2 g/dL (3.4-5.0); ALBUMIN/GLOBULIN RATIO 1.1 (1.0-1.7); ALK PHOS 81 U/L (46-116); ALT (SGPT) 44 U/L (16-63); AST (SGOT) 38 U/L (15-37); LIPASE 75 U/L (73-393); TOTAL BILIRUBIN 0.7 mg/dL (0.2-1.0); TOTAL PROTEIN 7.9 g/dL (6.4-8.2)
--- NOTE | 2020-09-12 11:01 | RAD ---
EXAM: CT Head without IV contrast INDICATION: Reason: cp / Spl. Instructions: / History: TECHNIQUE: Multi-detector row CT images were obtained of the head without the use of IV contrast. All CT scans performed at this facility utilize dose optimization techniques as appropriate to the exam, including the following: Automated exposure control and adjustment of the mA and/or KV according to patient size (this includes techniques or standardized protocols for targeted exams where dose is ind ication/reason for exam). COMPARISON: 06/21/[address] FINDINGS: BRAIN PARENCHYMA: No evidence of acute intraparenchymal hemorrhage or infarct. No abnormal parenchyma l density or mass. VENTRICLES & EXTRA-AXIAL SPACES: Ventricles are within normal limits. Basilar cisterns are patent. N o pathologic extra-axial fluid collection or mass. ORBITS: Orbital contents are unremarkable. SINUSES: Visualized paranasal sinuses and mastoid air cells are clear. OSSEOUS & SOFT TISSUES: Calvarium and skull base are intact. IMPRESSION: No acute intracranial pathology EXAM: XR CHEST 1V, CT HEAD/BRAIN WO INDICATION: Reason: cp / Spl. Instructions: / History: . TECHNIQUE: Single view COMPARISON: None FINDINGS: The heart size is normal. The great vessels appear unremarkable. There is no hilar or mediastinal mass. The lungs are clear. There is no pleural effusion or pneumothorax. There are no significant osseous abnormalities. IMPRESSION: No active cardiopulmonary disease. Electronically signed by: Pina Alcaraz MD (09/12/2020 10:59 AM) [id number]
--- NOTE | 2020-09-12 11:17 | RAD ---
CT ABDOMEN+PELVIS W History: abd pain Comparison: None. Technique: After administration of intravenous contrast, helical CT of the abdomen and pelvis was per formed from the lung bases through the ischial tuberosities. Coronal and sagittal reconstructions wer e obtained. 75 mL of Omnipaque 350 were used. One or more of the following dose reduction techniques were utilized: Automated exposure control (AEC), Adjustment of mA and/or kV according to patient size , Use of iterative reconstruction technique such as ASiR, CT scan done according to ALARA and image g ently/image wisely Abdomen Findings: The visualized lung bases are clear. The liver, gallbladder, pancreas, spleen, and bilateral adrenal glands are normal. Symmetric renal enhancement. There is no focal renal mass. There is no hydronephrosis. The visualized loops of small bowel are normal. The visualized loops of large bowel are normal. There is no evidence of bowel obstruction. Appendix is normal. There is no free fluid. There is no mesenteric or retroperitoneal adenopathy. The abdominal aorta is normal in caliber. Pelvis Findings: Urinary bladder is normal. No pelvic free fluid. There is no pelvic or inguinal adenopathy. There is no acute bony abnormality. IMPRESSION: No acute findings. Electronically signed by: Stephen Mallory MD (09/12/2020 11:15 AM) [id number]
--- NOTE | 2020-09-12 11:46 | EKG ---
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
[2020-09-12 12:37] LABS: BILIRUBIN,URINE NEG (NEG); CLARITY,URINE CLEAR; COLOR,URINE YELLOW; GLUCOSE,URINE NEG (NEG); UROBILINOGEN,URINE 0.2 mg/dL (0.2 mg/dL)
[2020-09-12 12:38] LABS: BACTERIA,URINE 0 /HPF (0-FEW); NITRITE,URINE NEG (NEG); RBC,URINE 0 /HPF (0-2); SQUAMOUS EPITHELIAL CELL,UR OCC /LPF; WBC,URINE RARE /HPF (0-4)
[2020-09-12] MEDS ORDERED: ONDA4TAB7 PO (12:41)
[2020-09-12] MEDS ORDERED: FAMO-63 PO (12:41)
[2020-09-12 13:00] VITALS: BP 137/85
== END 2020-09-12 13:00 | disposition home or self-care (01) ==
LOC: ER 10:00
DX: R11.2 Nausea with vomiting, unspecified (principal); R10.13 Epigastric pain; R07.89 Other chest pain; K92.1 Melena; F43.10 Post-traumatic stress disorder, unspecified
CPT/HCPCS: 36415; 70450; 71045; 74177; 80053; 81001; 83690; 83880; 84484; 85025; 93005; 96361; 96374; 96375; 99285; J2405; J3490; J7030; Q9967

== ENCOUNTER 2020-12-12 09:18 | Emergency (ER) | payer MEDICAID ==
[~2020-12-12] VITALS: Ht 182.9 cm; Wt 104.5 kg
[~2020-12-12 09:18] MED LIST changes: +FAMO-63 PO; +ONDA4TAB7 PO
[2020-12-12] MEDS ORDERED: DEXAMETHASONE 4 MG TABLET PO ONE (09:30)
[2020-12-12] MEDS ORDERED: AMOX1TAB61 PO (09:34)
--- NOTE | 2020-12-12 09:35 | PHYS DOC ---
Past History Past Medical History: No Pertinent History Additional Past Medical Histor: PTSD Past Surgical History: No Surgical History Smoking: Non-smoker Alcohol Use: None Drug Use: None General Adult EDM: Chief Complaint: COUGH HPI: HPI: 25-year-old male presents with report of sore throat x2 days with report of swelling in his tonsils when looking at them in the mirror. Patient reports is able to handle secretions but it is painful to swallow. Patient does report associated cough. Patient reports he recently received a Covid vaccination 2 days ago. Reports was tested at that time with a rapid test and came back negative. Denies known sick contacts. Review of Systems: Review of Systems: Constitutional: Denies fever or chills Eyes: Denies redness or eye pain HENT: Denies nasal congestion; reports sore throat Respiratory: Reports cough; denies shortness of breath Cardiovascular: Denies chest pain or palpitations GI: Denies abdominal pain, nausea, or vomiting : Denies dysuria or hematuria Musculoskeletal: Denies back pain or joint pain Integument: Denies rash or skin lesions Neurologic: Denies headache, focal weakness or sensory changes Complete systems were reviewed and found to be within normal limits, except as documented in this note. Allergies: Allergies: Allergies Coded Allergies Type Severity Reaction Last Updated Verified No Known Drug Allergies 04/03/20 No Physical Exam: PE: Constitutional: Well developed, well nourished, no acute distress, non-toxic appearance HENT: Normocephalic, atraumatic, pharynx and uvula erythematous, uvula edematous, no tonsillar exudate noted Eyes: Conjunctiva normal, no discharge Neck: Normal range of motion, no tenderness, supple, no meningeal signs Lungs & Thorax: No respiratory distress, equal chest rise and fall Skin: Warm, dry, no erythema, no rash Extremities: No tenderness, ROM intact, no edema Neurologic: Alert and oriented X 3, no focal deficits noted Psychologic: Affect normal, judgment normal EKG: EKG: [] Radiology/Procedures: Radiology/Procedures: PROCEDURE: CHEST AP ONLY Exam Date: 12/12/2020 9:28 AM XR CHEST 1V Indication: Reason: cough / Spl. Instructions: / History: Comparison: September 12, 2020 FINDINGS/ IMPRESSION: The cardiac silhouette and pulmonary vasculature are within normal limits. There is no focal consolidation, pleural effusion or pneumothorax. The visualized osseous structures are intact. Electronically signed by: Jim Martínez MD (12/12/2020 10:28 AM) [id number] Heart Score: C/O Chest Pain: N/A Course & Med Decision Making: Course & Med Decision Making Pertinent Labs and Imaging studies reviewed. (See chart for details) Patient presents with report of sore throat and cough. History of Covid vaccination and negative rapid Covid test 2 days ago. Patient is afebrile upon arrival. Sats stable. Pharynx erythematous with some uvular edema. Symptoms and physical exam appear more likely secondary to uvulitis. Symptoms more likely viral in nature. Rapid strep negative. Strep culture pending. Cannot fully exclude COVID-19. Covid PCR testing therefore obtained. Chest x-ray without acute process. Will prescribe antibiotics with instructions to "watch and wait ". Patient stable for discharge with outpatient follow-up with PCP. Discussed findings and plan with patient, who acknowledges understanding and agreement. Nicole Disclaimer: Nicole Disclaimer: This electronic medical record was generated, in whole or in part, using a voice recognition dictation system. Departure Departure: Impression: Primary Impression: Uvulitis Additional Impression: URI (upper respiratory infection) Qualified Codes: J06.9 - Acute upper respiratory infection, unspecified Disposition: HOME / SELF CARE / HOMELESS Condition: STABLE Referrals: LILLI BELLA DO (PCP) Patient Instructions: Upper Respiratory Infection, Adult, [id number], Uvulitis Additional Instructions: Use over the counter Tylenol and/or Ibuprofen for pain and discomfort. Hold antibiotics for 48 hours. If symptoms worsen or for fever > 100.3 F after 48 hours then start antibiotics as prescribed. You have been tested for or diagnosed with COVID-19. It is an infection caused by a new type of coronavirus. COVID-19 will cause cold-like or mild flu symptoms in most. It can cause more severe symptoms like problems breathing in some. There is no treatment for COVID-19. The body will clear the infection over time. Self-care will help to ease discomfort. Steps to Take: Self-Care Rest as needed. Healthy habits may help you feel better. Steps include: Choose healthy foods including fruits and vegetables. Drink water throughout the day. Get plenty of sleep each night. If you smoke, try to quit. It may ease breathing. Avoid alcohol. Keep Others Healthy The virus can spread to others. Droplets are released every time you sneeze or cough. The droplets can get into the mouth, nose, or eyes of people near you and lead to infection. To lower the chances of spreading COVID-19 to others: Stay at home until your doctor has said it is safe to leave. If you tested positive this will mean staying isolated until both of the following are true: At least 7 days have passed since the start of illness. You are free of fever for at least 72 hours without the use of medicine. During this time: - Avoid public areas, events, or transportation. Do not return to work or school until your doctor has said it is safe to do so. - Call ahead if you need to go to a medical center. Let them know you may have COVID-19. It will help them guide you where to go. They may also ask you to wear a facemask when you come to the office. - If you call for emergency medical services, let them know you may have COVID- 19. While at home: - Try to avoid close contact with others. Stay about 6 feet away. - If possible, spend most of your time in a separate room from others. - Use a face mask if you will be in close contact with others such as sharing a room or vehicle. - Have someone wipe down common surfaces in the home. Use household speedboat operator every day on areas like doorknobs, counters, or sinks. - Cough or sneeze into a tissue. Throw the tissue away right after use. If a tissue is not available, cough or sneeze into your elbow. - Wash your hands often. Wash them after sneezing or coughing. Use soap and water and wash for at least 20 seconds. Alcohol based hand diamond cleaner can be used if soap and water is not available. - Do not prepare food for others. Avoid sharing personal items like forks, spoons, or toothbrushes. - Avoid close contact with pets while you are sick. There is no evidence of the virus passing to pets. This is a safety step until more is known about this virus. Isolation can be frustrating. Social interaction can help. Keep in touch with friends and family through phone and tech options. You can still interact with others in your home, just keep a safe distance of about 6 feet. Follow-up: Your doctors office will check in with you to see if there are any changes in your health. You may be asked to keep track of symptoms to share with them. They will also let you know when you are clear to be in public again. Problems to Look Out For: Contact your doctor if your recovery is not going as you expect. Get emergency care if you have problems such as: - Trouble breathing - Nonstop chest pain or pressure - Changes in awareness, confusion, or problems waking - Lips or face have bluish color - Worsening of symptoms If you think you have an emergency, call for emergency medical services right away. As taken from [facility] Scripts Amoxicillin/Potassium Clav (AUGMENTIN 875-125 TABLET) 1 Each Tablet 1 TAB PO BID for Pharyngitis for 7 Days, #14 TAB 0 Refills Prov: MAGGIE PACKER DO 12/12/20 MAGGIE PACKER DO Dec 12, 2020 09:35
[2020-12-12 09:46] VITALS: BP 140/87
--- NOTE | 2020-12-12 10:30 | RAD ---
Exam Date: 12/12/2020 9:28 AM XR CHEST 1V Indication: Reason: cough / Spl. Instructions: / History: Comparison: September 12, 2020 FINDINGS/ IMPRESSION: The cardiac silhouette and pulmonary vasculature are within normal limits. There is no focal consolidation, pleural effusion or pneumothorax. The visualized osseous structures are intact. Electronically signed by: Jim Martínez MD (12/12/2020 10:28 AM) [id number]
== END 2020-12-12 09:46 | disposition home or self-care (01) ==
LOC: ER 09:18
DX: K12.2 Cellulitis and abscess of mouth (principal); J06.9 Acute upper respiratory infection, unspecified; F43.10 Post-traumatic stress disorder, unspecified; Z20.822 Contact with and (suspected) exposure to COVID-19
CPT/HCPCS: 71045; 87070; 87880; 99284; C9803; J8540; U0003; U0005

== ENCOUNTER 2021-01-28 11:41 | Emergency (ER) | payer MEDICAID, OTHER ==
[~2021-01-28] VITALS: Ht 182.9 cm; Wt 105.0 kg
[~2021-01-28 11:41] MED LIST changes: +AMOX1TAB61 PO
[2021-01-28 11:44] VITALS: BP 128/67
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
--- NOTE | 2021-01-28 12:13 | RAD ---
EXAM: XR LT WRIST 3VIEWS 01/28/2021 11:52 AM CLINICAL INDICATION: Left scaphoid tenderness after fall on outstretched hand COMPARISON: None TECHNIQUE: 4 views of the left wrist FINDINGS: There is no acute fracture. Alignment is normal. Joint spaces are maintained. Soft tissues normal. IMPRESSION: Normal radiograph of the left wrist. Electronically signed by: Jonelle Day MD (01/28/2021 12:10 PM) [id number]
== END 2021-01-28 12:40 | disposition home or self-care (01) ==
LOC: ER 11:41 → EEVIPCON 11:41 → ER 12:40
DX: S60.212A Contusion of left wrist, initial encounter (principal); S00.511A Abrasion of lip, initial encounter; F43.10 Post-traumatic stress disorder, unspecified; Y08.89XA Assault by other specified means, initial encounter; Y93.89 Activity, other specified; Y92.89 Other specified places as the place of occurrence of the external cause; Y99.8 Other external cause status
CPT/HCPCS: 70450; 72125; 73110; 99285

== ENCOUNTER 2021-07-05 14:40 | Emergency (ER) | payer MEDICAID ==
[~2021-07-05] VITALS: Ht 182.9 cm; Wt 105.0 kg
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
--- NOTE | 2021-07-05 15:05 | EKG ---
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
[2021-07-05] MEDS ORDERED: IV NORMAL SALINE 1,000ML 1,000 ML IV ONE (15:30)
[2021-07-05 15:36] LABS: SALIC 3.6 mg/dL (2.8-20.0)
[2021-07-05 15:36] LABS: ALBUMIN 5.2 g/dL (3.4-5.0); ALBUMIN/GLOBULIN RATIO 1.5 (1.0-1.7); CALCIUM 10.3 mg/dL (8.5-10.1); CREATININE 2.1 mg/dL (0.7-1.3); GFR 47.2; POTASSIUM 3.8 mmol/L (3.5-5.1); TOTAL BILIRUBIN 0.6 mg/dL (0.2-1.0); TOTAL PROTEIN 8.7 g/dL (6.4-8.2)
[2021-07-05 15:37] LABS: ACETAMIN < 2.0 mcg/mL (10-30); ETHANOL < 10 mg/dL (0-10)
[2021-07-05 15:43] LABS: BASO # 0.1 x10^3/uL (0.0-0.2); BASO % 0 % (0-3); EOS # 0.2 x10^3/uL (0.0-0.7); EOS % 1 % (0-3); HEMATOCRIT 51.8 % (39.0-53.0); HEMOGLOBIN 16.6 g/dL (13.0-17.5); LYMPH % 32 % (24-48); MEAN CORPUSCULAR HEMOGLOBIN 32 pg (25-35); MEAN CORPUSCULAR HGB CONC 32 g/dL (31-37); MEAN CORPUSCULAR VOLUME 99 fL (79-100); MONO # 1.5 x10^3/uL (0.0-1.1); MONO % 6 % (0-9); NEUT # 15.2 x10^3uL (1.8-7.7); NEUT % 61 % (31-73); PLATELET COUNT 366 x10^3/uL (140-400); RED BLOOD COUNT 5.24 x10^6/uL (4.30-5.70); RED CELL DISTRIBUTION WIDTH 13.5 % (11.5-14.5); WHITE BLOOD COUNT 24.9 x10^3/uL (4.0-11.0)
[2021-07-05] MEDS ORDERED: IV RINGERS SOLUTION,LACTATED 1,000 ML IV ONE (16:00)
[2021-07-05 16:09] LABS: % EOS 2 % (0-5); % LYMPHS 53 % (24-48); % MONOS 3 % (0-10); % SEGS 42 % (35-66)
[2021-07-05 16:10] LABS: PLT ESTIMATE ADEQUATE (ADEQUATE)
--- NOTE | 2021-07-05 16:32 | RAD ---
CT HEAD AND C-SPINE WO Date: 07/05/2021 3:15 PM Clinical Indication: Pain, fall Comparison: 01/28/2021. Technique: 5 mm axial tomographic images were obtained of the head without contrast. These were view ed on brain and bone windows. CT imaging of the cervical spine was performed without contrast. Coron al and sagittal reformatted images were performed. One or more of the following dose reduction techni ques were utilized: Automated exposure control (AEC), Adjustment of mA and/or kV according to patient size, Use of iterative reconstruction technique such as ASiR, CT scan done according to ALARA and im age gently/image wisely HEAD FINDINGS: The brain parenchyma is normal in attenuation. No intra- or extra-axial mass or fluid collection. No acute hemorrhage. The ventricles are normal in size, shape, and morphology. The sykes-white matter rodríguez ction is normal. The basilar cisterns are patent. The visualized paranasal sinuses are normal. The visualized portions of the orbits and globes are no rmal. The mastoid air cells are clear. No aggressive osseous lesion or fracture. CERVICAL SPINE FINDINGS: The cervical spine is normally aligned. No acute fracture. No aggressive lytic or blastic osseous les ion. The intervertebral disc heights are maintained. No high-grade spinal canal stenosis or neural foramin al narrowing. The thyroid gland is normal. No cervical lymphadenopathy. The visualized aerodigestive tract is unrem arkable. The visualized lung apices are clear. IMPRESSION: 1. No acute intracranial process. 2. No acute osseous abnormality of the cervical spine. Electronically signed by: Stephen Mallory MD (07/05/2021 4:29 PM) [facility]
--- NOTE | 2021-07-05 17:00 | RAD ---
XR CHEST 1V History: Reason: fall / Spl. Instructions: / History: . Pain Comparison: None. Findings: Low lung volumes. No consolidation or pleural effusion. Normal heart size. No pneumothorax. Impression: 1. Low lung volumes. Electronically signed by: Andrew Arreguin DO (07/05/2021 4:57 PM) [facility]
--- NOTE | 2021-07-05 17:01 | RAD ---
XR PELVIS 1-2V History: Reason: fall / Spl. Instructions: / History: . Pain Technique: AP view the pelvis. Comparison: None. Findings: Normal AP alignment of the hips. No acute fracture. Impression: 1. No acute osseous abnormality. Electronically signed by: Andrew Arreguin DO (07/05/2021 4:58 PM) [facility]
[2021-07-05 17:12] VITALS: BP 154/89
[2021-07-05 18:00] LABS: AMPHETAMINE/METHAMPHETAMINE NEG (NEG); BARBITURATES NEG (NEG); BENZODIAZEPINES NEG (NEG); CANNABINOIDS POS (NEG); COCAINE NEG (NEG); METHADONE NEG (NEG); OPIATES NEG (NEG); PHENCYCLIDINE NEG (NEG)
[2021-07-05 18:06] LABS: BACTERIA,URINE 0 /HPF (0-FEW); BILIRUBIN,URINE NEG (NEG); CLARITY,URINE CLEAR; COLOR,URINE YELLOW; GLUCOSE,URINE NEG (NEG); NITRITE,URINE NEG (NEG); UROBILINOGEN,URINE 0.2 mg/dL (0.2 mg/dL); WBC,URINE 0 /HPF (0-4)
== END 2021-07-05 18:24 | disposition home or self-care (01) ==
LOC: ER 14:40
DX: R41.82 Altered mental status, unspecified (principal); R56.9 Unspecified convulsions; F19.10 Other psychoactive substance abuse, uncomplicated; R55 Syncope and collapse; R51.9 Headache, unspecified; M54.2 Cervicalgia; F43.10 Post-traumatic stress disorder, unspecified; W18.39XA Other fall on same level, initial encounter; Y93.89 Activity, other specified; Y92.89 Other specified places as the place of occurrence of the external cause; Y99.8 Other external cause status
CPT/HCPCS: 36415; 70450; 71045; 72125; 72170; 80053; 80307; 80329; 81001; 83605; 83735; 84484; 85007; 85025; 93005; 96361; 96374; 99285; G0480; J2060; J7030; J7120

== ENCOUNTER 2021-10-09 22:10 | Emergency (ER) | payer MEDICAID ==
[~2021-10-09] VITALS: Ht 182.9 cm; Wt 124.6 kg
[2021-10-09 22:10] VITALS: BP 129/58
[2021-10-09] MEDS ORDERED: DEXAMETHASONE SOD PHOS 10 MG/ML VIAL. ONE (22:47)
[2021-10-09] MEDS ORDERED: AMOXICILLIN/K CLAV 875/125MG TABLET. PO ONE (23:00)
[2021-10-09] MEDS ORDERED: DEXAMETHASONE 4 MG TABLET PO ONE (23:00)
[2021-10-09] MEDS ORDERED: AMOX1TAB11 PO (23:29)
--- NOTE | 2021-10-09 23:29 | PHYS DOC ---
Past History Past Medical History: Other Additional Past Medical Histor: PTSD Past Medical History Tonsillar abscess Past Surgical History: No Surgical History Smoking: Non-smoker Alcohol Use: None Drug Use: None General Adult EDM: Chief Complaint: SORE THROAT HPI: HPI: Patient is a [age] year old [sex] who presents with [] Review of Systems: Review of Systems: Constitutional: Denies fever or chills Eyes: Denies change in visual acuity HENT: Denies nasal congestion or sore throat Respiratory: Denies cough or shortness of breath Cardiovascular: Denies chest pain or edema GI: Denies abdominal pain, nausea, vomiting, bloody stools or diarrhea : Denies dysuria Musculoskeletal: Denies back pain or joint pain Integument: Denies rash Neurologic: Denies headache, focal weakness or sensory changes Endocrine: Denies polyuria or polydipsia Lymphatic: Denies swollen glands Psychiatric: Denies depression or anxiety Current Medications: Current Meds: Current Medications Medications (Trade) Dose Ordered Sig/Rosenda Start Time Stop Time Status Last Admin Dose Admin Amoxicillin/ Clavulanate Potassium (Augmentin 875/ 125mg) 1 tab 1X ONCE 10/09/21 23:00 10/09/21 23:05 DC 10/09/21 23:00 1 TAB Dexamethasone (Decadron) 10 mg 1X ONCE 10/09/21 23:00 10/09/21 23:01 DC 10/09/21 22:51 10 MG Dexamethasone Sodium Phosphate (Decadron) 10 mg STK-MED ONCE 10/09/21 22:47 10/09/21 22:47 DC Allergies: Allergies: Allergies Coded Allergies Type Severity Reaction Last Updated Verified No Known Drug Allergies 04/03/20 No Physical Exam: PE: Constitutional: Well developed, well nourished, no acute distress, non-toxic appearance. [] HENT: Normocephalic, atraumatic, bilateral external ears normal, oropharynx moist, no oral exudates, nose normal. [] Eyes: PERRLA, EOMI, conjunctiva normal, no discharge. [] Neck: Normal range of motion, no tenderness, supple, no stridor. [] Cardiovascular:Heart rate regular rhythm, no murmur [] Lungs & Thorax: Bilateral breath sounds clear to auscultation [] Abdomen: Bowel sounds normal, soft, no tenderness, no masses, no pulsatile masses. [] Skin: Warm, dry, no erythema, no rash. [] Back: No tenderness, no CVA tenderness. [] Extremities: No tenderness, no cyanosis, no clubbing, ROM intact, no edema. [] Neurologic: Alert and oriented X 3, normal motor function, normal sensory fun ction, no focal deficits noted. [] Psychologic: Affect normal, judgement normal, mood normal. [] Current Patient Data: Vital Signs: Vital Signs Date Time Temp Pulse Resp B/P (MAP) Pulse Ox O2 Delivery O2 Flow Rate FiO2 10/09/21 22:10 97.7 70 18 129/58 (81) 98 Room Air EKG: EKG: [] Radiology/Procedures: Radiology/Procedures: [] Heart Score: Risk Factors: Risk Factors: DM, Current or recent (<one month) smoker, HTN, HLP, family history of CAD, obesity. Risk Scores: Score 0 - 3: 2.5% MACE over next 6 weeks - Discharge Home Score 4 - 6: 20.3% MACE over next 6 weeks - Admit for Clinical Observation Score 7 - 10: 72.7% MACE over next 6 weeks - Early Invasive Strategies Course & Med Decision Making: Course & Med Decision Making Pertinent Labs and Imaging studies reviewed. (See chart for details) [] Dragon Disclaimer: Nicole Disclaimer: This electronic medical record was generated, in whole or in part, using a voice recognition dictation system. Departure Departure: Impression: Primary Impression: Pharyngitis Qualified Codes: J02.9 - Acute pharyngitis, unspecified Disposition: HOME / SELF CARE / HOMELESS Condition: STABLE Referrals: PCP,NO (PCP) Patient Instructions: Viral and Bacterial Pharyngitis, [id number] Additional Instructions: Use [id number] ibuprofen and or Tylenol for pain or discomfort. You have also been given a one-time dose of a long-acting steroid to help knock down inflammation as you start taking the antibiotics. Your rapid strep test was negative however those tests are not 100%. A culture therefore has been ordered but does take several days to result. You may benefit from follow-up with ear nose and throat. Call to make an appointment. Dr. Kerry Angelo Address: [address] [place] [address] [address], [place] [address] Scripts Amoxicillin/Potassium Clav (AMOX TR-K CLV 875-125 MG TAB) 1 Each Tablet 1 TAB PO BID for Pharyngitis for 7 Days, #14 TAB Prov: MAGGIE PACKER DO 10/09/21 MAGGIE PACKER DO Oct 09, 2021 23:29
== END 2021-10-09 23:37 | disposition home or self-care (01) ==
LOC: ER 22:10
DX: J02.9 Acute pharyngitis, unspecified (principal)
CPT/HCPCS: 87070; 87880; 99283; J8540